=== PATIENT | female | born 1985 | race Hispanic/Latino ===

== ENCOUNTER 2020-07-15 09:42 | Emergency (ER) | payer SELFPAY ==
[~2020-07-15] VITALS: Ht 157.5 cm; Wt 81.6 kg
[2020-07-15] MEDS ORDERED: BENADRYL25 M1 PO (10:12)
[2020-07-15] MEDS ORDERED: PREDNISONE20 MG PO (10:12)
[2020-07-15] MEDS ORDERED: PEPCID20 MG PO (10:12)
[2020-07-15] MEDS ORDERED: FAMOTIDINE 20 MG TAB PO ONE (10:15)
[2020-07-15] MEDS ORDERED: PREDNISONE 20 MG TAB PO ONE (10:15)
== END 2020-07-15 10:45 | disposition home or self-care (01) ==
LOC: FSED 10:07
DX: R21 Rash and other nonspecific skin eruption (principal); T78.40XA Allergy, unspecified, initial encounter
CPT/HCPCS: 99282; J7512

== ENCOUNTER 2020-07-17 02:07 | Emergency (ER) | payer SELFPAY ==
[~2020-07-17] VITALS: Ht 157.5 cm; Wt 81.6 kg
[~2020-07-17 02:07] MED LIST: BENADRYL25 M1 PO; PEPCID20 MG PO; PREDNISONE20 MG PO
[2020-07-17] MEDS ORDERED: FAMOTIDINE 20 MG/2 ML VIAL IV STA (02:36)
[2020-07-17] MEDS ORDERED: SODIUM CHLORIDE 0.9% 500ML 500 ML ONE (02:45)
[2020-07-17] MEDS ORDERED: SODIUM CHLORIDE 0.9% 500ML 500 ML IV ONE (02:45)
[2020-07-17] MEDS ORDERED: FAMOTIDINE 20 MG/2 ML VIAL IV ONE (02:45)
[2020-07-17] MEDS ORDERED: METHYLPREDNISOLONE SOD SUCC 125 MG/2ML VIAL ONE (02:45)
[2020-07-17] MEDS ORDERED: METHYLPREDNISOLONE SOD SUCC 125 MG/2ML VIAL IV ONE (02:45)
[2020-07-17] MEDS ORDERED: PREDNISONE20 MG PO (03:07)
[2020-07-17] MEDS ORDERED: CETIRIZINE HCL10 MG PO (03:09)
[2020-07-17] MEDS ORDERED: EPINEPHRIN0.3 MG/0.3 IM (03:16)
[2020-07-17 03:19] VITALS: BP 139/87
== END 2020-07-17 03:22 | disposition home or self-care (01) ==
LOC: FSED 02:11
DX: L50.9 Urticaria, unspecified (principal); T78.40XA Allergy, unspecified, initial encounter
CPT/HCPCS: 96374; 96376; 99283; J2930; J7040